=== PATIENT | female | born 1965 | race Caucasian/White ===

== ENCOUNTER 2021-03-06 05:30 | Emergency (ER) | payer BC, SELFPAY ==
[2021-03-06] MEDS ORDERED: HYDROCODONE/APAP 10/325 TAB ONE (06:48)
[2021-03-06] MEDS ORDERED: IBUPROFEN 400 MG TAB ONE (06:49)
[2021-03-06] MEDS ORDERED: ONDANSETRON 4 MG (ODT) TAB ONE (06:49)
[2021-03-06] MEDS ORDERED: IBUPROFEN 200 MG TAB PO ONE (06:49)
--- NOTE | 2021-03-06 06:55 | ER ---
Nurse's Notes [facility] Name: Abeba Perry Age: 55 yrs Sex: Female : 1965 Arrival Date: 03/06/2021 Time: 05:42 Bed 8 Private MD: Diagnosis: Pain in left knee;Fall (on) (from) other stairs and steps;Internal derangement of knee;Displaced fracture of lateral condyle of left tibia-plateau fracture Presentation: 03/06 05:53 Chief complaint: Patient states: hyperextended her left knee yesterday and now it is iw swollen and she can't stand on it, also has been treating an rash on her left leg with abx and topical steroid but has more discoloration to top of left foot. Coronavirus screen: At this time, the client does not indicate any symptoms associated with coronavirus-19. Ebola Screen: Patient negative for fever greater than or equal to 101.5 degrees Fahrenheit, and additional compatible Ebola Virus Disease symptoms Patient denies exposure to infectious person. Patient denies travel to an Ebola-affected area in the 21 days before illness onset. No symptoms or risks identified at this time. Initial Sepsis Screen: Does the patient meet any 2 criteria? No. Patient's initial sepsis screen is negative. Does the patient have a suspected source of infection? No. Patient's initial sepsis screen is negative. Risk Assessment: Do you want to hurt yourself or someone else? Patient reports no desire to harm self or others. Onset of symptoms was March 05, 2021. 05:53 Method Of Arrival: Wheelchair iw 05:53 Acuity: TREVON 4 iw Triage Assessment: 08:51 Injury Description: Deformity sustained to left knee. bp Historical: - Allergies: 05:56 No Known Allergies; iw - Home Meds: 05:56 None [Active]; iw - PMHx: 05:56 None; iw - Immunization history:: Adult Immunizations Client reports receiving the 2nd dose of the Covid vaccine. - Social history:: Smoking status: Reported history of juuling and/or vaping. Screenin:01 Abuse screen: Denies threats or abuse. Nutritional screening: No deficits noted. ea Tuberculosis screening: No symptoms or risk factors identified. Fall Risk No IV (0 pts). Assessment: 06:04 General: Appears in no apparent distress. Behavior is calm, cooperative, appropriate lp1 for age. Pain: Complains of pain in left knee Pain currently is 6 out of 10 on a pain scale. Neuro: No deficits noted. Cardiovascular: No deficits noted. Respiratory: No deficits noted. GI: No signs and/or symptoms were reported involving the gastrointestinal system. : No signs and/or symptoms were reported regarding the genitourinary system. EENT: No signs and/or symptoms were reported regarding the EENT system. Derm: Skin is intact, Skin is dry, Skin is normal, Bruising that is on left knee. Musculoskeletal: Circulation, motion, and sensation intact. Range of motion: limited in left knee Reports pain in left knee. 06:57 Reassessment: Patient and/or family updated on plan of care and expected duration. Pain ea level reassessed. Patient is alert, oriented x 3, equal unlabored respirations, skin warm/dry/pink. Awaiting for ultrasounds prior to discharge. 07:40 Reassessment: Patient appears in no apparent distress at this time. Patient and/or jd3 family updated on plan of care and expected duration. Pain level reassessed. Patient is alert, oriented x 3, equal unlabored respirations, skin warm/dry/pink. ultrasound at bedside. discharge pending ultrasound results. 08:49 Reassessment: PT D/C HOME VIA W/C WITH FRIEND, DX WITH DISPLACED FX OF LATERAL CONDYLE bp OF LEFT KNEE. Vital Signs: 05:53 BP 123 / 87; Pulse 90; Resp 16; Temp 97.7; Pulse Ox 100% on R/A; Weight 63.5 kg; Height iw 5 ft. 4 in. (162.56 cm); Pain 8/10; 07:41 BP 159 / 88; Pulse 79; Resp 17 S; Pulse Ox 99% on R/A; jd3 08:49 BP 135 / 79; Pulse 75; Resp 17; Temp 97.8; Pulse Ox 99% ; bp 05:53 Body Mass Index 24.03 (63.50 kg, 162.56 cm) iw ED Course: 05:42 Patient arrived in ED. es 05:56 Triage completed. iw 05:57 Arm band placed on. iw 06:01 Patient has correct armband on for positive identification. Bed in low position. Call ea light in reach. 06:03 Claudio Barrios MD is Attending Physician. jane 06:04 Payne, Neetu, RN is Primary Nurse. lp1 06:33 Knee Left 3 View XRAY In Process Unspecified. EDMS 06:54 John Malone MD is Referral Physician. jane 08:00 Knee immobilizer applied on left knee. bp 08:49 No provider procedures requiring assistance completed. Patient did not have IV access bp during this emergency room visit. 09:03 US Extremity Venous Unilateral Ltd In Process Unspecified. EDMS Administered Medications: 06:32 Drug: Perry (HYDROcodone-acetaminophen) 10 mg-325 mg 1 tabs Route: PO; ea 08:28 Follow up: Response: No adverse reaction; Pain is decreased bp 06:33 Drug: Motrin (ibuprofen) 600 mg Route: PO; ea 08:28 Follow up: Response: No adverse reaction; Pain is decreased bp Outcome: 06:54 Discharge ordered by MD. jane 08:50 Discharged to home via wheelchair, with friend. bp 08:50 Condition: stable 08:50 Discharge instructions given to patient, Instructed on discharge instructions, follow up and referral plans. medication usage, Demonstrated understanding of instructions, follow-up care, medications, splint care, Prescriptions given X 2. 08:58 Patient left the ED. jd3 Signatures: Dispatcher [employer] EDMS Claudio Barrios MD MD cha Salyer, Edna es Williams, Irene, RN GISELLA iw Neetu Payne, RN RN lp1 Riddhi Ceron RN RN ea Davies, Jonathon, RN RN jd3 Jorge Sparrow RN RN bp
--- NOTE | 2021-03-06 06:55 | EDPHYS ---
Physician Documentation [facility] Name: Abeba Perry Age: 55 yrs Sex: Female : 1965 Arrival Date: 03/06/2021 Time: 05:42 Bed 8 Private MD: STONE Physician Claudio Barrios HPI: 03/06 06:25 This 55 yrs old Female presents to ER via Wheelchair with complaints of Knee jane Injury. 06:25 The patient presents with decreased range of motion, pain, that is acute. The jane complaints affect the left knee. Context: The problem was sustained at home, the patient is not able to bear weight, the patient is not able to ambulate. Onset: The symptoms/episode began/occurred yesterday. Modifying factors: The symptoms are alleviated by elevating leg, remaining still, the symptoms are aggravated by movement, weight bearing, bending knee. Associated signs and symptoms: The patient has no apparent associated signs or symptoms. Treatment prior to arrival includes: beau wrap. Severity of symptoms: At their worst the symptoms were moderate, in the emergency department the symptoms are unchanged. Historical: - Allergies: 05:56 No Known Allergies; iw - Home Meds: 05:56 None [Active]; iw - PMHx: 05:56 None; iw - Immunization history:: Adult Immunizations Client reports receiving the 2nd dose of the Covid vaccine. - Social history:: Smoking status: Reported history of juuling and/or vaping. ROS: 06:25 Constitutional: Negative for fever, chills, and weight loss, Eyes: Negative for injury, jane pain, redness, and discharge, ENT: Negative for injury, pain, and discharge, Neck: Negative for injury, pain, and swelling, Cardiovascular: Negative for chest pain, palpitations, and edema, Respiratory: Negative for shortness of breath, cough, wheezing, and pleuritic chest pain, Abdomen/GI: Negative for abdominal pain, nausea, vomiting, diarrhea, and constipation, Back: Negative for injury and pain, : Negative for injury, bleeding, discharge, and swelling, Skin: Negative for injury, rash, and discoloration, Neuro: Negative for headache, weakness, numbness, tingling, and seizure, Psych: Negative for depression, anxiety, suicide ideation, homicidal ideation, and hallucinations, Allergy/Immunology: Negative for hives, rash, and allergies, Endocrine: Negative for neck swelling, polydipsia, polyuria, polyphagia, and marked weight changes, Hematologic/Lymphatic: Negative for swollen nodes, abnormal bleeding, and unusual bruising. 06:25 MS/extremity: Positive for decreased range of motion, pain, swelling, tenderness, of the left knee. Exam: 06:25 Constitutional: This is a well developed, well nourished patient who is awake, alert, jane and in no acute distress. Head/Face: Normocephalic, atraumatic. Eyes: Pupils equal round and reactive to light, extra-ocular motions intact. Lids and lashes normal. Conjunctiva and sclera are non-icteric and not injected. Cornea within normal limits. Periorbital areas with no swelling, redness, or edema. ENT: Nares patent. No nasal discharge, no septal abnormalities noted. Tympanic membranes are normal and external auditory canals are clear. Oropharynx with no redness, swelling, or masses, exudates, or evidence of obstruction, uvula midline. Mucous membranes moist. Neck: Trachea midline, no thyromegaly or masses palpated, and no cervical lymphadenopathy. Supple, full range of motion without nuchal rigidity, or vertebral point tenderness. No Meningismus. Chest/axilla: Normal chest wall appearance and motion. Nontender with no deformity. No lesions are appreciated. Cardiovascular: Regular rate and rhythm with a normal S1 and S2. No gallops, murmurs, or rubs. Normal PMI, no JVD. No pulse deficits. Respiratory: Lungs have equal breath sounds bilaterally, clear to auscultation and percussion. No rales, rhonchi or wheezes noted. No increased work of breathing, no retractions or nasal flaring. Abdomen/GI: Soft, non-tender, with normal bowel sounds. No distension or tympany. No guarding or rebound. No evidence of tenderness throughout. Back: No spinal tenderness. No costovertebral tenderness. Full range of motion. Skin: Warm, dry with normal turgor. Normal color with no rashes, no lesions, and no evidence of cellulitis. Neuro: Awake and alert, GCS 15, oriented to person, place, time, and situation. Cranial nerves II-XII grossly intact. Motor strength 5/5 in all extremities. Sensory grossly intact. Cerebellar exam normal. Normal gait. Psych: Awake, alert, with orientation to person, place and time. Behavior, mood, and affect are within normal limits. 06:25 Musculoskeletal/extremity: Extremities: contusion, decreased ROM, pain, swelling, tenderness, ROM: limited active range of motion, limited passive range of motion, limited active range of motion due to pain, limited passive range of motion due to pain, Circulation is intact in all extremities. Sensation intact. Compartment Syndrome exam of affected extremity: is normal. DVT Exam: no appreciated bluish discoloration, no erythema, no increased warmth, pain, swelling, tenderness. Vital Signs: 05:53 BP 123 / 87; Pulse 90; Resp 16; Temp 97.7; Pulse Ox 100% on R/A; Weight 63.5 kg; Height iw 5 ft. 4 in. (162.56 cm); Pain 8/10; 07:41 BP 159 / 88; Pulse 79; Resp 17 S; Pulse Ox 99% on R/A; jd3 08:49 BP 135 / 79; Pulse 75; Resp 17; Temp 97.8; Pulse Ox 99% ; bp 05:53 Body Mass Index 24.03 (63.50 kg, 162.56 cm) iw MDM: 06:03 Patient medically screened. [facility] 06:28 Differential diagnosis: closed fracture, contusion. Data reviewed: vital signs, nurses [facility] notes, radiologic studies, plain films, ultrasound. 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 rate is 90 beats/min, rhythm is regular, Pulse oximetry: is not applicable for this patient encounter. Test interpretation: by ED physician or midlevel provider: plain radiologic studies. Counseling: I had a detailed discussion with the patient and/or guardian regarding: radiology results. 03/06 06:04 Order name: Knee Left 3 View XRAY [facility] 03/06 06:24 Order name: US Extremity Venous Unilateral Ltd [facility] 03/06 06:24 Order name: Ice pack; Complete Time: 07:08 [facility] 03/06 06:24 Order name: Crutches; Complete Time: 07:55 [facility] 03/06 06:24 Order name: Knee Immobilizer; Complete Time: 07:55 jane Administered Medications: 06:32 Drug: [place] (HYDROcodone-acetaminophen) 10 mg-325 mg 1 tabs Route: PO; ea 08:28 Follow up: Response: No adverse reaction; Pain is decreased bp 06:33 Drug: Motrin (ibuprofen) 600 mg Route: PO; ea 08:28 Follow up: Response: No adverse reaction; Pain is decreased bp Disposition: 03/06/21 06:54 Discharged to Home. Impression: Pain in left knee, Fall (on) (from) other stairs and steps, Internal derangement of knee, Displaced fracture of lateral condyle of left tibia - plateau fracture. - Condition is Stable. - Discharge Instructions: Joint Pain, How to Use a Knee Brace, Musculoskeletal Pain, Knee Pain, Cryotherapy, [id number], Cryotherapy, Knee Pain, [id number]. - Prescriptions for Tylenol- Codeine #3 300-30 mg Oral Tablet - take 2 tablets by ORAL route every 4-6 hours As needed; 26 tablet. Motrin IB 200 mg Oral Tablet - take 2 tablet by ORAL route every 6 hours As needed as needed with food; 30 tablet. - Medication Reconciliation Form, Thank You Letter, Antibiotic Education, Prescription Opioid Use form. - Follow up: Private Physician; When: 2 - 3 days; Reason: Recheck today's complaints, Continuance of care, Re-evaluation by your physician. Follow up: John Malone; When: 2 - 3 days; Reason: Recheck today's complaints, Re-evaluation by your physician. - Problem is new. - Symptoms have improved. Signatures: Dispatcher [employer] Claudio Botello MD MD cha Williams, Irene, RN RN iw Antunez, Elena, RN RN ea Davies, Jonathon, RN RN jd3 Peltier, Brian RN bp Corrections: (The following items were deleted from the chart) 08:58 06:54 03/06/2021 06:54 Discharged to Home. Impression: Pain in left knee; Fall (on) jd3 (from) other stairs and steps; Internal derangement of knee; Displaced fracture of lateral condyle of left tibia - plateau fracture. Condition is Stable. Discharge Instructions: Joint Pain, How to Use a Knee Brace, Musculoskeletal Pain, Knee Pain, Cryotherapy, [id number], Cryotherapy, Knee Pain, [id number]. Prescriptions for Tylenol-Codeine #3 300-30 mg Oral Tablet - take 2 tablets by ORAL route every 4-6 hours As needed; 26 tablet, Motrin IB 200 mg Oral Tablet - take 2 tablet by ORAL route every 6 hours As needed as needed with food; 30 tablet. and Forms are Medication Reconciliation Form, Thank You Letter, Antibiotic Education, Prescription Opioid Use. Follow up: Private Physician; When: 2 - 3 days; Reason: Recheck today's complaints, Continuance of care, Re-evaluation by your physician. Follow up: John Malone; When: 2 - 3 days; Reason: Recheck today's complaints, Re-evaluation by your physician. Problem is new. Symptoms have improved. jane
[2021-03-06 09:06] VITALS: O2SAT 99
[2021-03-06 09:07] VITALS: BP 135/79; TEMP 97.8
--- NOTE | 2021-03-06 09:31 | RAD REPORT ---
EXAM DESCRIPTION: RAD - Knee Left 3 View - 03/06/2021 6:34 am CLINICAL HISTORY: PAIN, knee trauma COMPARISON: No comparisons FINDINGS: Lateral tibial plateau fracture is present. This is a predominantly sagittally oriented fr acture plane through the lateral aspect of the lateral femoral condyle. Fracture fragment is depresse d 10 mm. There are probably additional fracture planes within the lateral tibial plateau. No medial t ibial plateau fracture. Distal femur, patella and proximal fibula are intact.Fluid is present in the joint space. This could be reactive diffusion or hemarthrosis. On the lateral cross table the joint f luid does not show any blood fluid layering. No soft tissue abnormality. IMPRESSION: Approximately 10 mm depressed lateral tibial plateau fracture.
--- NOTE | 2021-03-06 09:32 | RAD REPORT ---
EXAM DESCRIPTION: US - Extremity Venous Uni Ltd - 03/06/2021 9:03 am CLINICAL HISTORY: PAIN COMPARISON: None. TECHNIQUE: Real-time sonographic evaluation of the left lower extremity deep venous system was perfo rmed. FINDINGS: Normal compressibility, flow augmentation, phasic flow and spontaneous flow are identified in the left lower extremity common femoral, superficial femoral, popliteal and posterior tibial vein s. No intraluminal filling defects seen. IMPRESSION: No DVT in the left lower extremity.
== END 2021-03-06 08:58 | disposition home or self-care (01) ==
LOC: ER 05:30
DX: S82.142A Displaced bicondylar fracture of left tibia, initial encounter for closed fracture (principal); M23.92 Unspecified internal derangement of left knee; W10.9XXA Fall (on) (from) unspecified stairs and steps, initial encounter; Y92.009 Unspecified place in unspecified non-institutional (private) residence as the place of occurrence of the external cause
CPT/HCPCS: 93971; 99284